=== PATIENT | male | born 1970 | race Caucasian/White ===

== ENCOUNTER 2020-04-02 18:19 | Emergency (ER) | payer MEDICAID, SELFPAY ==
--- NOTE | ~2020-04-02 | US_ITS ---
EXAMINATION: US ABDOMEN LIMITED CLINICAL INFORMATION: Right upper quadrant pain. COMPARISON: None TECHNIQUE: Real-time imaging of the right upper quadrant abdominal viscera. Evaluation limited by body habitus and bowel gas. FINDINGS: PANCREAS: The pancreatic head appears unremarkable. The body and tail are obscured by gas. LIVER: Normal. The liver is normal in size. The liver contour is normal. Parenchymal echogenicity is normal. No focal hepatic lesion. There is no intrahepatic biliary duct dilatation seen. GALLBLADDER: Normal. The gallbladder is physiologically distended without evidence of stones, sludge, polyps, wall thickening or pericholecystic fluid. COMMON BILE DUCT: Normal in caliber measuring 0.5 cm in diameter. RIGHT KIDNEY: Normal. No hydronephrosis. No renal calculi or focal parenchymal lesions. The kidney measures 11.4 cm in maximum dimension. FREE FLUID: None. US/US abdomen limited IMPRESSION: Unremarkable right upper quadrant ultrasound. Normal appearance of the gallbladder.
--- NOTE | ~2020-04-02 | XR_ITS ---
EXAMINATION: XR CHEST CLINICAL INFORMATION: Right lower rib pain. Cough. COMPARISON: None TECHNIQUE: 2 views of the chest were obtained. FINDINGS: The lungs are well expanded. There is no focal consolidation, edema, or effusion. No pneumothorax. The cardiomediastinal silhouette is within normal limits. No acute osseous abnormality. XR/XR chest 2V IMPRESSION: No acute pulmonary finding. No displaced fractures are seen.
[2020-04-02 18:40] VITALS: BP 116/77; PULSE 74; RESP 20; TEMP 36.6; O2SAT 96; BMI 44.4
[2020-04-02 18:52] LABS: MANUAL DIFF FLAG NO
[2020-04-02 18:53] LABS: Basophils Percent Auto 0.6 % (0-2); Eosinophils Absolute Auto 0.2 X10*3/uL (0.0-0.4); Eosinophils Percent Auto 2.7 % (0-4); Hematocrit 40.1 % (42-52); Hemoglobin 12.8 g/dl (14.0-18.0); Imm Gran Pct Auto 1.4 % (0.0-0.4); Lymphocytes Absolute Auto 2.1 X10*3/uL (1.2-4.9); Lymphocytes Percent Auto 29.4 % (20-40); Mean Corpuscular HGB Conc 31.9 g/dl (31.0-36.0); Mean Corpuscular Hemoglobin 26.1 pg (27.0-33.0); Mean Corpuscular Volume 81.8 fL (80-98); Mean Platelet Volume 9.2 fL (9.4-12.4); Monocytes Absolute Auto 0.7 X10*3/uL (0.1-1.2); Monocytes Percent Auto 9.6 % (2-11); Neutrophils Absolute Auto 3.9 X10*3/uL (2.0-8.3); Neutrophils Percent Auto 56.3 % (45-73); Platelet Count 221 X10*3/uL (160-400); Red Cell Distribution Width 14.7 % (11.0-16.0)
[2020-04-02 19:27] LABS: Alanine Aminotransferase 51 U/L (0-40); Albumin Level 4.3 g/dL (3.5-5.0); Alkaline Phosphatase 70 U/L (39-117); Anion Gap 12 (12-20); Aspartate Amino Transferase 50 U/L (5-37); Bilirubin Direct 0.2 mg/dL (0.0-0.5); Bilirubin Total 0.6 mg/dL (0.0-1.0); Blood Urea Nitrogen 9 mg/dL (9-16); Calcium 9.3 mg/dL (8.4-10.2); Carbon Dioxide 29 mmol/L (22-29); Chloride 104 mmol/L (96-108); Creatinine Clr Calc Pharmacy 140.8; Estimated Glomerular Filt Rate > 60; Glucose Random 130 mg/dL (60-115); Lipase 19 U/L (8-78); Potassium 4.3 mmol/L (3.3-5.1); Sodium 141 mmol/L (135-145); Total Protein 7.1 g/dL (6.5-8.0)
--- NOTE | 2020-04-02 23:53 | ED_ITS ---
HPI - Abdominal Pain General Chief Complaint: Abdominal Pain Stated Complaint: abdominal pain Time Seen by Provider: 04/02/20 23:25 Source: patient Mode of arrival: ambulatory History of Present Illness HPI narrative: This is a 49-year-old male who presents with 1 week of right upper quadrant discomfort with radiation into the posterior back associated with a few episodes of nausea and nonbloody vomiting but denies any fevers, chills, diarrhea. Patient denies any history of being told he has gallbladder stones and denies any urinary pain/burning/hematuria. Related Data Previous Rx's Medication Instructions Recorded omeprazole 40 mg PO DAILY 30 Days #30 cap 04/03/20 Allergies Allergy/AdvReac Type Severity Reaction Status Date / Time No Known Allergies Allergy Verified 04/02/20 18:45 Review of Systems Review of Systems Pertinent positives and negatives as stated in HPI 10 point review systems is otherwise negative. Physical Exam Vital Signs: Vital Signs: Last Vital Signs Temp 97.9 F 04/02/20 18:40 Pulse 74 04/02/20 18:40 Resp 20 04/02/20 18:40 BP 116/77 04/02/20 18:40 Pulse Ox 96 04/02/20 18:40 Body Mass Index 44.4 VITAL SIGNS: Reviewed. GENERAL: Well developed, well nourished, in no acute distress. OROPHARYNX: no oral lesions noted, posterior pharynx clear NECK: Supple, no adenopathy LUNGS: Normal breath sounds. SpO2<96> CARDIOVASCULAR: Regular rate and rhythm without noted murmurs ABDOMEN: Soft, tenderness in right upper quadrant without rebound, non-distended with bowel sounds. . SKIN: Inspection of the skin reveals no rashes NEUROLOGIC: Alert and oriented x 4. Course Course Course Narrative: This is a 49-year-old male with history and clinical present ation suggestive of cholelithiasis, cholecystitis, but less likely pancreatitis or gastritis. Review of all investigations to include right upper quadrant ultrasound negative for any evidence of gallbladder etiology is negative for evidence infiltrate and labs otherwise benign. Patient got complete resolution of his symptoms with GI cocktail suspect that this is a gastritis issue. Patient was informed of all results and findings will be discharged with omeprazole. MDM - Abdominal Pain Lab Data Result diagrams: 04/02/20 18:46 04/02/20 18:46 Labs: Lab Results 02/15/21 02/15/21 Range/Units 18:46 18:46 WBC 7.0 (4.8-10.8) X10*3/uL RBC 4.90 (4.60-5.80) X10*6/uL Hgb 12.8 L (14.0-18.0) g/dl Hct 40.1 L (42-52) % MCV 81.8 (80-98) fL MCH 26.1 L (27.0-33.0) pg MCHC 31.9 (31.0-36.0) g/dl RDW 14.7 (11.0-16.0) % Plt Count 221 (160-400) X10*3/uL MPV 9.2 L (9.4-12.4) fL Immature Gran % (Auto) 1.4 H (0.0-0.4) % Neut % (Auto) 56.3 (45-73) % Lymph % (Auto) 29.4 (20-40) % Tompkins % (Auto) 9.6 (2-11) % Eos % (Auto) 2.7 (0-4) % Baso % (Auto) 0.6 (0-2) % Lymph # (Auto) 2.1 (1.2-4.9) X10*3/uL Tompkins # (Auto) 0.7 (0.1-1.2) X10*3/uL Eos # (Auto) 0.2 (0.0-0.4) X10*3/uL Baso # (Auto) 0.0 (0.0-0.2) X10*3/uL Abs Immat Gran (auto) 0.10 H (0.00-0.03) X10*3/uL Absolute Neuts (auto) 3.9 (2.0-8.3) X10*3/uL Absolute Nucleated RBC 0.000 (0.0-0.012) X10*3/uL Nucleated RBC % (auto) 0.0 (0.0-0.2) /100WBC Sodium 141 (135-145) mmol/L Potassium 4.3 (3.3-5.1) mmol/L Chloride 104 (96-108) mmol/L Carbon Dioxide 29 (22-29) mmol/L Anion Gap 12 (12-20) BUN 9 (9-16) mg/dL Creatinine 0.80 (0.5-1.4) mg/dL Estim Creat Clear Calc 140.8 Estimated GFR > 60 Random Glucose 130 H (60-115) mg/dL Calcium 9.3 (8.4-10.2) mg/dL Total Bilirubin 0.6 (0.0-1.0) mg/dL Direct Bilirubin 0.2 (0.0-0.5) mg/dL AST 50 H (5-37) U/L ALT 51 H (0-40) U/L Alkaline Phosphatase 70 (39-117) U/L Total Protein 7.1 (6.5-8.0) g/dL Albumin 4.3 (3.5-5.0) g/dL Lipase 19 (8-78) U/L Discharge Plan Discharge Clinical Impression: Gastritis Qualifiers: Gastritis type: unspecified gastritis Chronicity: acute Gastritis bleeding: without bleeding Qualified Code(s): K29.00 - Acute gastritis without bleeding Patient Disposition: Home, Self-Care Instructions: Gastritis (ED), Diet for Stomach Ulcers and Gastritis (ED) Additional Instructions: Please follow-up with your primary care provider for re-evaluation and further management as indicated for your symptoms. Do not hesitate to return to the emergency department if you experience any acute worsening of your symptoms. Prescriptions: New omeprazole 40 mg capsule,delayed release(DR/EC) 40 mg PO DAILY 30 Days Qty: 30 RF: 0 Referrals: Jo Ann Beltran MD [Primary Care Provider] - 2 days (Re-evaluation and management after being evaluated in the emergency department and determined to have gastritis. He was started on omeprazole daily.) FORMERLY [facility] Past Medical History Source: nursing notes reviewed Medical History HLD (hyperlipidemia) Hypothyroid Social History Social History Smoked in Last 30 Days: No Advance Directives: No
[2020-04-03] MEDS: Acetaminophen 325 MG TABLET 975 MG PO (01:55)
[2020-04-03] MEDS: Ibuprofen 400 MG TABLET PO (01:55)
[2020-04-03] MEDS: Magnesium Hydrox/Alum Hydrox 30 ML ORAL.SUSP PO (01:55)
[2020-04-03] MEDS: Lidocaine HCl Viscous 2 % 15 ML SOLUTION 10 ML MUCOUS MEM (01:55)
== END 2020-04-03 04:40 | disposition home or self-care (01) ==
PROVIDERS: Emergency Provider Student in an Organized Health Care Education/Training Program; PCP Internal Medicine Pulmonary Disease
DX: K29.00 Acute gastritis without bleeding (principal)
CPT/HCPCS: 36415; 71046; 76705; 80048; 80076; 83690; 85025; 99284

== ENCOUNTER → 2021-07-03 08:50 | Outpatient (BNVA) | payer MEDICAID, SELFPAY | PROVIDERS: Visit Provider Psychiatry & Neurology Neurology | DX: G20 Parkinson's disease (principal); G47.33 Obstructive sleep apnea (adult) (pediatric); G25.81 Restless legs syndrome; R44.3 Hallucinations, unspecified | CPT/HCPCS: 99212 ==

== ENCOUNTER → 2022-05-30 12:16 | Outpatient (BNVA) | payer MEDICAID, SELFPAY | PROVIDERS: Visit Provider Psychiatry & Neurology Neurology | DX: G20 Parkinson's disease (principal); G47.33 Obstructive sleep apnea (adult) (pediatric); G25.81 Restless legs syndrome; R44.3 Hallucinations, unspecified; U07.0 Vaping-related disorder; Z87.891 Personal history of nicotine dependence; Z99.89 Dependence on other enabling machines and devices | CPT/HCPCS: 99212 ==

== ENCOUNTER 2024-05-30 09:59 | Outpatient (AMB) | payer MEDICAID, SELFPAY ==
[2024-05-30 10:01] VITALS: PULSE 67; O2SAT 98; BMI 42.9
--- NOTE | 2024-05-30 10:01 | MHC.OFFVIS ---
Vital Signs 05/30/24 10:01 Height 5 ft 6 in Weight 266 lb BMI 42.9 Pulse 67 Pulse Source Pulse Oximeter Pulse Oximetry (%) 98 Oxygen Delivery Method Room Air Intake Visit Reasons: Follow Up Intake Note: Patient added to schedule was a reschedule. non compliant with cpap usage unable to print a report Allergies No Known Allergies Allergy (Verified 05/30/24 10:03) HPI Comments Details: 53y/o male with sleep apnea, Parkinsonism comes for follow up after 2years. He was incarcerated for 1 year - 1 year ago and he did not use CPAP.He restarted CPAP again. He also has no PCP now and is only on thyroxine and clonidine. PFSH Medical History Parkinsonism Obstructive sleep apnea Restless legs syndrome (RLS) Hallucinations Depression HLD (hyperlipidemia) Hypothyroid Surgical History Hx of hernia repair H/O knee surgery Family History Father Heart disease Brother Parkinson disease OLGA (obstructive sleep apnea) Sister Tremor Bipolar 1 disorder Social History Alcohol intake: never Patient Tobacco Use Status: Former Tobacco user e-Cigarette/Vaping Use: Currently Using Physical Exam Vital Signs: Last Vital Signs Pulse 67 05/30/24 10:01 Pulse Ox 98 05/30/24 10:01 Oxygen Delivery Method Room Air 05/30/24 10:01 BMI result Body Mass Index 42.9 Assessment & Plan Assessment & Plan (1) Parkinsonism: Code(s): G20 - Parkinson's disease Category: Medical Qualifiers: Parkinsonism type: unspecified Qualified Code(s): G20.C - Parkinsonism, unspecified (2) Obstructive sleep apnea: Code(s): G47.33 - Obstructive sleep apnea (adult) (pediatric) Category: Medical (3) Restless legs syndrome (RLS): Code(s): G25.81 - Restless legs syndrome Category: Medical (4) Hallucinations: Code(s): R44.3 - Hallucinations, unspecified Category: Medical Plan Hold off on carbidopa/levodopa F/u psychiatry for mood Continue CPAP, compliance stressed PCP info given Medications: Discontinued carbidopa-levodopa 25-100 mg (Sinemet) Discontinued Reason: Patient no longer taking 1 tab PO ONCE 180 tabs 2RF Coding Level of Care Code Est Pt Level 4 (74992) Diagnoses Parkinsonism, unspecified Parkinsonism type G20.C Parkinsonism type: unspecified Obstructive sleep apnea G47.33 Restless legs syndrome (RLS) G25.81 Hallucinations R44.3
--- OUTSIDE RECORDS SUMMARY | 2024-05-30 11:15 | XMS_ITS | Continuity of Care Document ---
Author Organization [facility] Primary [facility] e [facility] Address [address] [place] [address]- Care Team Providers Care Air Bag Builder Name Role Phone Miguel VANESSA, Mallory Camacho Primary Care Physician [phone] Encounter [facility] NBR [id number] Date(s): 04/29/24 - 05/29/24 [facility] [address], [place] [address] Encounter Type: Triage Allergies, Adverse Reactions, Alerts No Known Allergies Immunizations Given and Recorded Vaccine Date Status Refusal Reason tetanus/diphtheria/pertussis, acel(Tdap) 07/15/23 Given tetanus/diphtheria/pertussis, acel(Tdap) 1 02/28/22 Recorded influenza virus vaccine, inactivated 11/26/18 Chepe rded pneumococcal 23-valent vaccine 2 11/16/11 Given 1Result Comment: was given here on February 2Early/Late Reason: Patient Not Available/Off Unit Medications Aspirin Tablet 81 mg, By Mouth, Daily, Maintenance, 02/22/14 11:38:34 AM EST Start Date: 02/22/14 Status: Ordered Repeat number: 1 levothyroxine 150 mcg (0.15 mg) oral tablet See Instructions, TAKE 1 TABLET BY MOUTH EVERY DAY THURSDAY TO THURSDAY; HOLD MEDICATION ON THURSDAY AND THURSDAY, # 20 tablet, 5 Refills, Maintenance, 05/17/24 6:46:00 AM EDT, [facility] #[id number], 168, cm, 06/19/22 12:54:00 EDT, Height Start Date: 05/17/24 Status: Ordered Quantity: 20.0 Unit: tablet Repeat number: 6 metFORMIN 500 mg oral tablet 1 tablet, By Mouth, 2 times a day, # 180 tablet, 1 Refills, Maintenance, 10/28/22 7:06:00 PM EDT, [facility] #[id number], 168, cm, 06/19/22 12:54:00 EDT, Height, 126, kg, 05/07/22 8:05:00 EDT, Dry Weight Start Date: 10/28/22 Status: Ordered Quantity: 180.0 Unit: tablet Repeat number: 1 One Touch Delica Lancets See Instructions, # 60 each, Refills 11, Tot. Refills 11, Maintenance, ONE TOUCH DELICA PLUS LANCETS-33G USE TO CHECK BLOOD GLUCOSE TWICE DAILY DX E11.9, 03/21/22 3:47:00 PM EST, Supply, 167, cm, 03/21/22 11:00:00 EST, Height, 132.3, kg, 03/06/22 13:33:00 EST, Dry Weight Start Date: 03/21/22 Status: Ordered Quantity: 60.0 Unit: each Repeat number: 12 One Touch Ultra 2 Glucose Meter See Instructions, # 3 each, Refills 2, Tot. Refills 2, Maintenance, Used to check blood glucose twice daily Diagnosis code E11.9, 03/14/22 2:48:00 PM EST, Supply, 167, cm, 03/07/22 10:53:00 EST, Height, 132.3, kg, 03/06/22 13:33:00 EST, Dry Weight Start Date: 03/14/22 Stop Date: 12/09/22 Status: Ordered Quantity: 3.0 Unit: each Repeat number: 3 One Touch Ultra Test Strips See Instructions, # 100 each, Refills 3, Tot. Refills 3, Maintenance, Used to check blood glucose twice daily Diagnosis code E11.9, 12/09/22 2:48:00 PM EDT, Supply, 167, cm, 03/21/22 11:00:00 EST, Height, 132.3, kg, 03/06/22 13:33:00 EST, Dry Weight Start Date: 12/09/22 Stop Date: 12/04/23 Status: Ordered Quantity: 100.0 Unit: each Repeat number: 4 OneTouch Verio Lancets See Instructions, # 1 each, Maintenance, Used to check blood glucose twice daily Diagnosis code E11.9, 03/14/22 2:48:00 PM EST, Supply, 167, cm, 03/07/22 10:53:00 EST, Height, 132.3, kg, 03/06/22 13:33:00 EST, Dry Weight Start Date: 03/14/22 Status: Ordered Quantity: 1.0 Unit: each Repeat number: 1 Readi-Cat 2 oral suspension See Instructions, 450 mL By Mouth first bottle drink night before scan at 8:00 pm drink 2nk bottle 1.5 hours prior to the scan on the day, # 2 each, 0 Refills, Maintenance, 03/07/22 12:09:00 PM EST, [facility]/pharmacy #[id number], Partial fill upon patient request if the prescription is for a schedule II opioiddrug., 450 mL By Mouth; first bottle drink night before scan at 8:00 pm; drink 2nk bottle 1.5 hoursprior to the scan on the day, 167, cm, 03/07/22 10:53:00 EST, Height, 132.3, kg, 03/06/22 13:33:00 EST, Dry Weight Start Date: 03/07/22 Status: Ordered Quantity: 2.0 Unit: each Repeat number: 1 rosuvastatin 20 mg oral tablet 1 tablet = 20 mg, By Mouth, Daily, # 90 tablet, 1 Refills, Maintenance, 05/22/22 12:55:00 PM EDT, Tablet, [facility] #[id number], Partial fill upon patient request if the prescription is for a schedule II opioid drug., 168, cm, 05/19/22 10:36:00 EDT, Height, 126, kg, 05/07/22 8:05:00 EDT, Dry Weight Start Date: 05/22/22 Status: Ordered Quantity: 90.0 Unit: tablet Repeat number: 2 sertraline 100 mg oral tablet 2 tablet, By Mouth, Daily in AM, # 180 tablet, 0 Refills, Maintenance, 03/30/23 11:37:00 AM EST, [facility] #[id number], 168, cm, 06/19/22 12:54:00 EDT, Height, 126, kg, 05/07/22 8:05:00 EDT, DryWeight Start Date: 03/30/23 Status: Ordered Quantity: 180.0 Unit: tablet Repeat number: 1 Sinemet 25/100 Tablet 0.5 tablet, By Mouth, 3 times a day, 0 Refills, Maintenance, 02/22/14 11:39:16 AM EST, Tablet Start Date: 02/22/14 Status: Ordered Repeat number: 1 traZODone 50 mg oral tablet 50 mg, 1, tablet, By Mouth, Daily at bedtime, PRN, # 30 tablet, Refills 2, Tot. Refills 2, Maintenance, Insomnia, 05/09/18 2:04:33 PM EDT, Route to Pharmacy Electronically, [facility] Start Date: 05/09/18 Stop Date: 08/07/18 Status: Ordered Quantity: 30.0 Unit: tablet Repeat number: 3 Problem List Condition Confirmation Course Effective Dates Status H ealth Status Informant Acquired hypothyroidism Confirmed Active Hyperlipidemia Confirmed Active OLGA on CPAP Confirmed Active Knee pain, left Confirmed Active Parkinsons disease Confirmed Active Severe obesity Confirmed Active Social History Social History Type Response Smoking Status Former smoker, quit more than 30 days ago entered on: 02/28/22 Sex Sex Representation Male (finding) Implantable Device List Procedure Provider Procedure Date Device Type Site Repair Hernia Ventral Open Darrin MARIANO, Nikko Canela 05/07/22 Unk nown Abdomen Device Identifier Serial Number Lot or Batch Number Manufacturing Date Expiration Date Distinct Identification Code MRI Safety Implantable Status Assigning Authority Unknown Unknown [id number] Unknown 04/15/26 Unknown Unknown Active Unknown Patient Care team information Care Team Personnel Name: Marty Pereira RN Position: [facility] RN Member Role: Primary Care Nurse Name: Mallory Rivera NP Position: [facility] PCO Associate Professional Member Role: PCP Address: [address] [place] [address] [place] [address]- Telecom: Care Team Related Persons Name: ZOHAIB LENTZ Name: VITALIY ZELAYA Insurance Providers Guarantor name: MIRELLA [facility] Information #: 1 Payer: JOSÉ: [facility] Member Number: NA Policy Number: NA Group Number: NA
--- OUTSIDE RECORDS SUMMARY | 2024-05-30 11:15 | XMS_ITS | Clinical Summary ---
Author Organization [facility] ity Address [address] [place] [address] Care Team Providers Care Interior Surface Insulation Worker Name Role Phone Dasia Beltran MD Primary Care Provider Social History Tobacco Use Types Packs/Day Years Used Date Smoking Tobacco: Every Day Cigarettes Smokeless Tobacco: Never Alcohol Use Standard Drinks/Week Comments Not Asked 0 (1 standard drink = 0.6 oz pur e alcohol) Sex and Gender Information Value Date Recorded Sex Assigned at Not on file Legal Sex Male 1:30 AM EST Gender Identity Not on file Sexual Orientation Not on file Obstetrics History Plan of Treatment Health Maintenance Due Date Last Done Comments DTaP,Tdap,and Td Vaccines (1 - Tdap) 11/10/1990 Hepatitis B Vaccines (1 of 3 - 19+ 3-dose series) 11/10/1990 Pneumococcal Vaccine: 50+ Ye ars (1 of 1 - PCV) 11/10/2021 Zoster Vaccines (1 of 2) 11/10/2021 COVID-19 Vaccine (2023-2 5 season) 2023 Influenza Vaccine (Season Ended) 2024 HIB Vaccines Aged Out No longer eligi ble based on patient's age to complete this topic HPV Vaccines Aged Out No longer eligi ble based on patient's age to complete this topic Hepatitis A Vaccines Aged Out No long er eligible based on patient's age to complete this topic IPV Vaccines Aged Out No longer eligi ble based on patient's age to complete this topic MMR Vaccines Aged Out No longer eligi ble based on patient's age to complete this topic Meningococcal ACWY Vaccine Aged Out N o longer eligible based on patient's age to complete this topic Meningococcal B Vaccine Aged Out No l onger eligible based on patient's age to complete this topic Pneumococcal Vaccine: Pediat rics (0 to 5 Years) and At-Risk Patients (6 to 64 Years) Aged Out No longer eligible b ased on patient's age to complete this topic RSV Immunization Patients Un jose 20 months Aged Out No longer eligible b ased on patient's age to complete this topic Varicella Vaccines Aged Out No longer eligible based on patient's age to complete this topic Care Teams Interior Surface Insulation Worker Relationship Specialty Start Date End Date Dsaia Beltran MD [address] [place] [address] PCP - General Pulmonology 08/02/18
== END 2024-05-30 10:30 | disposition home or self-care (01) ==
LOC: HO.HSMS 10:00
PROVIDERS: Visit Provider Psychiatry & Neurology Neurology
DX: G20.C Parkinsonism, unspecified (principal); G47.33 Obstructive sleep apnea (adult) (pediatric); G25.81 Restless legs syndrome; R44.3 Hallucinations, unspecified
CPT/HCPCS: 99214

== ENCOUNTER → 2024-05-30 09:59 | Outpatient (BNVA) | payer MEDICAID, SELFPAY | PROVIDERS: Visit Provider Psychiatry & Neurology Neurology | DX: G47.33 Obstructive sleep apnea (adult) (pediatric) (principal); G20.C Parkinsonism, unspecified; G25.81 Restless legs syndrome; R44.3 Hallucinations, unspecified; Z99.89 Dependence on other enabling machines and devices; Z91.198 Patient's noncompliance with other medical treatment and regimen for other reason | CPT/HCPCS: 99212 ==

== ENCOUNTER 2024-11-30 09:50 | Outpatient (AMB) | payer MEDICAID, SELFPAY ==
--- NOTE | 2024-11-30 09:53 | A.OFFVIS_ITS ---
Vital Signs 11/30/24 09:54 Height 5 ft 6 in Weight 255 lb 2 oz BMI 41.2 BP 128/84 Blood Pressure Location Rt brachial Position Sitting Pulse 53 Pulse Source Pulse Oximeter Pulse Oximetry (%) 97 Oxygen Delivery Method Room Air Intake Visit Reasons: 6 mnts f/u appt Intake Note: Follow up Hallucinations, Parkinson's, RLS and OLGA Hotel Dining Room Cashier Required: No Accompanied by: Self / Same As Patient Allergies No Known Allergies Allergy (Verified 11/30/24 09:54) Medication List - Last Reconciled 11/30/24 by Anusha Rosas MD clonidine HCl 0.1 mg PO BID levothyroxine mcg PO metformin 500 mg PO BID rosuvastatin 10 mg PO DAILY sertraline 50 mg PO DAILY HPI Comments Details: 54y/o male with sleep apnea, Parkinsonism comes for follow up .He uses CPAP regularly- i do not have compliance report. He has a new PCP.He still has trouble falling asleep- trying to sleep at the same time every night.His PCP is prescribing his sertraline and clonidine Mood is stable . Mild intermittent tremors.Gait- is stable. No falls . He lives alone and independent in all ADLs. History from last visit 05/2024- He was incarcerated for 1 year - 1 year ago and he did not use CPAP.He restarted CPAP again. He also has no PCP now and is only on thyroxine and clonidine. FORMERLY [facility] Medical History Parkinsonism Obstructive sleep apnea Restless legs syndrome (RLS) Hallucinations Depression HLD (hyperlipidemia) Hypothyroid Surgical History Hx of hernia repair H/O knee surgery Family History Father Heart disease Brother Parkinson disease OLGA (obstructive sleep apnea) Sister Tremor Bipolar 1 disorder Social History Alcohol intake: never Patient Tobacco Use Status: Former Tobacco user e-Cigarette/Vaping Use: Currently Using Physical Exam Vital Signs: Last Vital Signs Pulse 53 11/30/24 09:54 BP 128/84 11/30/24 09:54 Pulse Ox 97 11/30/24 09:54 Oxygen Delivery Method Room Air 11/30/24 09:54 BMI result Body Mass Index 41.2 Const General: cooperative Nutritional Appearance: obese Orientation/consciousness: patient oriented x3 HEENT Head: Yes normal to inspection Face and sinus: Yes normal facial exam Neuro Other: No tremors FFM and foot taps decreased due to pain Right UE 2 +cog wheel rigidity Gait- better mild decreased arm swings oliverio R>L General: patient oriented x3 Assessment & Plan Assessment & Plan (1) Parkinsonism: Code(s): G20 - Parkinson's disease Category: Medical Qualifiers: Parkinsonism type: unspecified Qualified Code(s): G20.C - Parkinsonism, unspecified (2) Obstructive sleep apnea: Code(s): G47.33 - Obstructive sleep apnea (adult) (pediatric) Category: Medical (3) Restless legs syndrome (RLS): Code(s): G25.81 - Restless legs syndrome Category: Medical Plan F/u with PCP for mood Continue CPAP, compliance stressed Coding Level of Care Code Est Pt Level 4 (94078) Diagnoses Parkinsonism, unspecified Parkinsonism type G20.C Parkinsonism type: unspecified Obstructive sleep apnea G47.33 Restless legs syndrome (RLS) G25.81
[2024-11-30 09:54] VITALS: BP 128/84; PULSE 53; O2SAT 97; BMI 41.2
--- OUTSIDE RECORDS SUMMARY | 2024-11-30 11:19 | XMS_ITS | Clinical Summary ---
Author Organization [facility] Address [address] [place] [address] Phone Care Team Providers Care Manager Of Community Relations Name Role Phone Mallory Rivera PROCUREMENT ANALYST Primary Care Provider [phone] Allergies No known active allergies Medications ciprofloxacin (CIPRO) 750 mg tablet Take 1 tablet (750 mg total) by mouth 2 (two) times a day for 7 days. 14 each 11/08/2024 Encounters Date Type Department Care Team Description 11/07/2024 8:57 PM EDT - 11/08/2024 12:30 AM EDT Emergency [facility] Emergency [address] [place] [address] Tonia Singh MD Puncture wound of right foot, initial encounter (Primary Dx) Discharge Disposition: Home or Self Care from Last 3 Months Immunizations Immunization Administration Dates Next Due Tdap Tetanus diptheria acell ular pertussis (Boostrix; Adacel) 7yo and older 11/07/2024 Social History Tobacco Use Types Packs/Day Years [...] Sexual Orientation Not on file Obstetrics History Last Filed Vital Signs Vital Sign Reading Time Taken Comments Blood Pressure 137/88 11/07/2024 8:17 PM EDT Pulse 86 11/07/2024 8:17 PM EDT Temperature 36.8 C (98.2 F) 11/07/2024 8:17 PM EDT Respiratory Rate 18 11/07/2024 8:17 PM EDT Oxygen Saturation 98% 11/07/2024 8:58 PM EDT Inhaled Oxygen Concentration - - Weight 118 kg (260 lb) 11/07/2024 8:17 PM EDT Height 167.6 cm (5' 6 ) 11/07/2024 8:17 PM EDT Body Mass Index 41.97 11/07/2024 8:17 PM EDT Plan of Treatment Health Maintenance Due Date Last Done Comments Colorectal Cancer Screening: Colonoscopy 1971 Hepatitis B Vaccines (1 of 3 - 19+ 3-dose series) 11/10/1990 Pneumococcal Vaccine: 50+ Years (2 of 2 - PCV) 11/15/2012 11/16/2011 RSV Immunization Adult Patients (1 - Risk 50-74 years 1-dose series) 11/10/2021 Zoster Vaccines (1 of 2) 11/10/2021 Depression Screening 02/17/2024 COVID-19 Vaccine (1 - 2023-2 5 season) 2024 Influenza Vaccine (#1) 2024 11/26/2018 Cholesterol Screening (Lipid Panel) 11/07/2024 HIV Screening 11/07/2024 Hepatitis C Screening 11/07/2024 Medicare Annual Wellness Visit 11/07/2024 Social Influencers of Health Screening 11/07/2024 DTaP,Tdap,and Td Vaccines (4 - Td or Tdap) 11/07/2034 11/07/2024, 07/15/2023, 02/28/2022 HIB Vaccines Aged Out No longer eligi [...] to complete this topic RSV Immunization Patients Under 20 months Aged Out No longer eligible b ased on patient's age to complete this topic Varicella Vaccines Aged Out No longer eligible based on patient's age to complete this topic Procedures Procedure Name Priority Date/Time Associated Diagnosis Comments XR FOOT 3+ VIEWS RIGHT STAT 11/07/2024 11:47 PM EDT from Last 3 Months Results * XR Foot 3+ Views Right (11/07/2024 11:47 PM EDT) Anatomical Region Laterality Modality Lower Extremities, Foot Right [facility] 11/08/2024 8:56 AM EDT Impressions 11/08/2024 9:01 AM EDT No acute findings. -------- FINAL REPORT -------- Dictated By: Cl Crabtree Dictated Date: 11/08/2024 08:56 ET Assigned Physician: Cl Crabtree Reviewed and Electronically Signed By: Cl Crabtree Signed Date: 11/08/2024 09:01 ET Workstation ID: [id number] Transcribed By: Self Edit Transcribed Date: 11/08/2024 08:56 ET Narrative 11/08/2024 9:01 AM EDT PROCEDURE: Radiographs of the right foot. HISTORY: pain. COMPARISON: None. FINDINGS: Bones appear diffusely demineralized. There are small plantar and retrocalcaneal spurs. No fracture or malalignment. Small accessory navicular and os peroneus. Procedure Note Cl Crabtree MD - 11/08/2024 PROCEDURE: Radiographs of the right foot. HISTORY: pain. COMPARISON: None. FINDINGS: Bones appear diffusely demineralized. There are small plantar andretrocalcaneal spurs. No fracture or malalignment. Small accessorynavicular and os peroneus. IMPRESSION: No acute findings. -------- FINAL REPORT -------- Dictated By: Cl Crabtree Dictated Date: 11/08/2024 08:56 ET Assigned Physician: Cl Crabtree Reviewed and Electronically Signed By: Cl Crabtree Signed Date: 11/08/2024 09:01 ET Workstation ID: [id number] Transcribed By: Self Edit Transcribed Date: 11/08/2024 08:56 ET Judah Venegas MD IMG XR PROCEDURES Final Result from Last 3 Months Insurance MEDICARE MEDICAID - [place] Care Teams Manager Of Community Relations Relationship Specialty Start Date End Date Mallory Rivera NP [address] [place] [phone] PCP - General Nurse Practitioner 11/07/24
== END 2024-11-30 10:23 | disposition home or self-care (01) ==
LOC: HO.HSMS 09:51
PROVIDERS: Visit Provider Psychiatry & Neurology Neurology
DX: G20.C Parkinsonism, unspecified (principal); G47.33 Obstructive sleep apnea (adult) (pediatric); G25.81 Restless legs syndrome
CPT/HCPCS: 99214

== ENCOUNTER → 2024-11-30 09:50 | Outpatient (BNVA) | payer MEDICAID, SELFPAY | PROVIDERS: Visit Provider Psychiatry & Neurology Neurology | DX: G20.C Parkinsonism, unspecified (principal); G47.33 Obstructive sleep apnea (adult) (pediatric); G25.81 Restless legs syndrome | CPT/HCPCS: 99212 ==